=== PATIENT | female | born 1980 | race Caucasian/White ===

== ENCOUNTER 2019-05-21 08:36 | Emergency (ER) | payer SELFPAY ==
--- OUTSIDE RECORDS SUMMARY | 2019-05-21 08:40 | XMS REPORT | Clinical Summary ---
:1980 Author Organization [facility] Address [address] [place] [address] Care Team Providers Name Role Phone Pcp, No Primary Care Provider Unavailable Allergies No Known Allergies Medications Medication Sig Dispensed Refills Start Date End Date Status loratadine Take 10 mg by 0 Active (CLARITIN) 10 mg mouth daily. tablet albuterol HFA Inhale 1 puff by 0 Active (VENTOLIN HFA) 90 mouth via inhaler mcg/actuation every 6 (six) inhaler hours as needed for Wheezing. predniSONE Take 3 tablets 15 tablet 0 01/07/2019 Active (DELTASONE) 20 MG once a day for 5 tablet days for asthma. ipratropium-albute Inhale 3 ml every 30 vial 5 01/07/2019 Active rol (DUO-NEB) 0.5 4 hours if needed mg-3 mg(2.5 mg for relief of base)/3 mL wheezing. nebulizer solution albuterol HFA Inhale 1 puff by 0 Discontinued (VENTOLIN HFA) 90 mouth via inhaler 9 mcg/actuation every 6 (six) inhaler hours as needed for Wheezing. ipratropium-albute Take 3 mLs by 0 Discontinued rol (DUO-NEB) 0.5 nebulization 9 mg-3 mg(2.5 mg every 6 (six) base)/3 mL hours as needed nebulizer solution for Wheezing. acetaminophen Take 1,000 mg by 0 Discontinued (TYLENOL) 500 MG mouth every 6 9 tablet (six) hours as needed for Pain. montelukast Take 10 mg by 0 Discontinued (SINGULAIR) 10 mg mouth nightly. 9 tablet ipratropium-albute Take 3 mLs by 30 ampule 0 05/16/2018 Discontinued rol (DUO-NEB) 0.5 nebulization 9 mg-3 mg(2.5 mg every 4 (four) base)/3 mL hours as needed nebulizer solution for Wheezing. predniSONE Take 1 tablet (50 5 tablet 0 05/16/2018 (DELTASONE) 50 MG mg total) by 8 tablet mouth daily for 5 days. hydrOXYzine Take 1 tablet (50 20 tablet 0 06/24/2018 (ATARAX) 50 MG mg total) by 8 tablet mouth every 6 (six) hours as needed for Itching for up to 10 days. predniSONE Take 1 tablet (50 5 tablet 0 06/24/2018 (DELTASONE) 50 MG mg total) by 8 tablet mouth daily for 5 days. acyclovir Take 1 tablet 50 tablet 0 06/24/2018 (ZOVIRAX) 800 MG (800 mg total) by 8 tablet mouth 5 (five) times daily for 10 days. montelukast Take 1 tablet (10 30 tablet 0 01/07/2019 (SINGULAIR) 10 mg mg total) by 9 tablet mouth nightly for 30 days. Active Problems No known active problems Encounters Date Type Specialty Care Team Description 01/07/2019 Emergency Emergency Medicine Ramirez Samuel Severe persistent asthma MD Manolo with acute exacerbation (Primary Dx) 01/07/2019 Travel 06/24/2018 Emergency Emergency Medicine Olvin Chavis Rash and nonspecific skin MD Brandan eruption (Primary Dx) after 05/20/2018 Social History Tobacco Use Types Packs/Day Years Used Date Former Smoker Cigarettes 0.5 20 Smokeless Tobacco: Never Used Alcohol Use Drinks/Week oz/Week Comments Yes SOCIALLY Sex Assigned at Date Recorded Not on file Job Start Date Occupation Industry Not on file Not on file Not on file Travel History Travel Start Travel End No recent travel history available. Last Filed Vital Signs Vital Sign Reading Time Taken Blood Pressure 131/87 01/07/2019 9:33 AM CDT Pulse 76 01/07/2019 10:22 AM CDT Temperature 36.6 C (97.9 F) 01/07/2019 9:33 AM CDT Respiratory Rate 20 01/07/2019 10:22 AM CDT Oxygen Saturation 97% 01/07/2019 10:22 AM CDT Inhaled Oxygen Concentration - - Weight 62.6 kg (138 lb) 01/07/2019 9:33 AM CDT Height 167.6 cm (5' 6") 01/07/2019 9:33 AM CDT Body Mass Index 22.27 01/07/2019 9:33 AM CDT Plan of Treatment Not on file Results Not on fileafter 05/20/2018
--- OUTSIDE RECORDS SUMMARY | 2019-05-21 08:40 | XMS REPORT | Clinical Summary ---
:1980 Author Organization [facility] Address [address] [place] [address] Care Team Providers Name Role Phone Asked, No Pcp Primary Care Provider Unavailable Allergies Active Allergy Reactions Severity Noted Date Comments Nsaids (Non-Steroidal Anti-Inflammatory Medium 12/13/2018 Rectal bleeding Drug) Medications Medication Sig Dispensed Refills Start Date End Date Status loratadine Take 10 mg by 0 Active (CLARITIN) 10 mg mouth daily. tablet albuterol (PROAIR Inhale 2 puffs 18 g 3 05/09/2019 Active HFA,PROVENTIL every 6 (six) 9 HFA,VENTOLIN HFA) hours as needed 90 mcg/actuation for wheezing or inhaler shortness of breath for up to 30 days. albuterol Take 3 mL (1.25 150 mL 12 05/09/2019 Active (ACCUNEB) 1.25 mg total) by 9 mg/3 mL nebulizer nebulization solution every 6 (six) hours as needed for wheezing for up to 30 days. montelukast Take 1 tablet (10 30 tablet 2 03/04/2018 (SINGULAIR) 10 mg mg total) by 8 tablet mouth nightly for 90 days. albuterol Take 3 mL (2.5 mg 75 mL 2 03/30/2018 (ACCUNEB) 2.5 mg total) by 8 /3 mL (0.083 %) nebulization nebulizer solution every 6 (six) hours as needed for wheezing for up to 60 days. ipratropium-albute Inhale 2 puffs 4 g 1 04/27/2018 rol (COMBIVENT every 4 (four) 8 RESPIMAT) 20-100 hours as needed mcg/actuation mist for wheezing for inhaler up to 30 days. ipratropium-albute Take 3 mL by 360 mL 0 04/27/2018 rol (DUO-NEB) nebulization 4 8 0.5-2.5 mg/mL (four) times a nebulizer day as needed for wheezing for up to 30 days. montelukast Take 10 mg by 0 Discontinued (SINGULAIR) 10 mg mouth. 8 tablet albuterol (PROAIR Inhale 1 puff. 0 Discontinued HFA,PROVENTIL 8 HFA,VENTOLIN HFA) 90 mcg/actuation inhaler ipratropium-albute 3 mL. 0 05/16/2018 Discontinued rol (DUO-NEB) 8 0.5-2.5 mg/mL nebulizer predniSONE Take 1 tablet (50 5 tablet 0 06/13/2018 (DELTASONE) 50 mg mg total) by 8 tablet mouth daily for 5 days. ipratropium-albute Take 3 mL by 360 mL 0 06/13/2018 Discontinued rol (DUO-NEB) nebulization 4 8 0.5-2.5 mg/mL (four) times a nebulizer day for 30 days. ipratropium-albute Take 3 mL by 90 mL 0 07/10/2018 rol (DUO-NEB) nebulization 4 8 0.5-2.5 mg/mL (four) times a nebulizer day for 30 doses. predniSONE Day 1-3: 60 mg per day 16 tablet 0 07/10/2018 Discontinued (DELTASONE) 10 mg Day 4-6: Take 40 mg per day 8 tablet Day 7-10: Take 20 mg per day albuterol Take 3 mL (2.5 mg 75 mL 0 07/10/2018 Discontinued (ACCUNEB) 2.5 mg total) by 8 /3 mL (0.083 %) nebulization nebulizer solution every 6 (six) hours as needed for wheezing for up to 30 days. LORAZepam (ATIVAN) Take 1 tablet 9 tablet 0 07/30/2018 0.5 MG tablet (0.5 mg total) by 8 mouth every 8 (eight) hours as needed for anxiety for up to 3 days. promethazine Take 1 tablet 12 tablet 0 07/30/2018 (PHENERGAN) 12.5 (12.5 mg total) 8 MG tablet by mouth every 6 (six) hours as needed for nausea or vomiting for up to 30 days. predniSONE Day 1-3: 60 mg 16 tablet 0 07/30/2018 (DELTASONE) 10 mg per day. Day 4-6: 8 tablet Take 40 mg per day. Day 7-10: Take 20 mg per day montelukast Take 1 tablet (10 30 tablet 3 07/30/2018 (SINGULAIR) 10 mg mg total) by 8 tablet mouth nightly for 30 days. albuterol (PROAIR Inhale 1 puff 18 g 3 07/30/2018 HFA,PROVENTIL every 4 (four) 8 HFA,VENTOLIN HFA) hours as needed 90 mcg/actuation for wheezing for inhaler up to 30 days. albuterol Take 3 mL (2.5 mg 75 mL 3 07/30/2018 (ACCUNEB) 2.5 mg total) by 8 /3 mL (0.083 %) nebulization nebulizer solution every 6 (six) hours as needed for wheezing for up to 30 days. budesonide-formote Inhale 2 puffs 2 1 Inhaler 3 07/30/2018 rol (SYMBICORT) (two) times a day 8 160-4.5 for 30 days. mcg/actuation inhaler albuterol (PROAIR Inhale 2 puffs 18 g 11 07/30/2018 HFA,PROVENTIL every 6 (six) 8 HFA,VENTOLIN HFA) hours as needed 90 mcg/actuation for wheezing for inhaler up to 30 days. ipratropium-albute Take 3 mL by 360 mL 3 07/30/2018 rol (DUO-NEB) nebulization 4 8 0.5-2.5 mg/mL (four) times a nebulizer day for 30 days. predniSONE Take 6 tablets 5 tablet 0 12/13/2018 (DELTASONE) 10 mg (60 mg total) by 9 tablet mouth daily for 5 days. ipratropium-albute Take 3 mL by 360 mL 0 12/13/2018 rol (DUO-NEB) nebulization 4 9 0.5-2.5 mg/mL (four) times a nebulizer day for 30 days. albuterol Take 3 mL (2.5 mg 75 mL 0 01/03/2019 (ACCUNEB) 2.5 mg total) by 9 /3 mL (0.083 %) nebulization nebulizer solution every 6 (six) hours as needed for wheezing for up to 30 days. albuterol (PROAIR Inhale 2 puffs 1 Inhaler 0 01/03/2019 HFA,PROVENTIL every 4 (four) 9 HFA,VENTOLIN HFA) hours as needed 90 mcg/actuation for wheezing for inhaler up to 30 days. predniSONE Take 1 tablet (50 4 tablet 0 01/03/2019 (DELTASONE) 50 mg mg total) by 9 tablet mouth daily for 4 days. albuterol (PROAIR Inhale 2 puffs 0 Discontinued HFA,PROVENTIL every 6 (six) 9 HFA,VENTOLIN HFA) hours as needed 90 mcg/actuation for wheezing. inhaler ipratropium-albute Take 3 mL by 360 mL 0 03/20/2019 rol (DUO-NEB) nebulization 4 9 0.5-2.5 mg/3 mL (four) times a nebulizer day for 30 days. predniSONE Take 1 tablet (50 5 tablet 0 03/20/2019 (DELTASONE) 50 mg mg total) by 9 tablet mouth daily for 5 days. ipratropium-albute Take 3 mL by 150 mL 0 04/25/2019 rol (DUO-NEB) nebulization 4 9 0.5-2.5 mg/3 mL (four) times a nebulizer day for 13 days. albuterol Take 3 mL (1.25 150 mL 12 04/25/2019 Discontinued (ACCUNEB) 1.25 mg total) by 9 mg/3 mL nebulizer nebulization solution every 6 (six) hours as needed for wheezing for up to 30 days. predniSONE Take 1 tablet (20 8 tablet 0 04/25/2019 (DELTASONE) 20 mg mg total) by 9 tablet mouth 2 (two) times a day for 4 days. albuterol Take 3 mL (1.25 150 mL 12 05/09/2019 Discontinued (ACCUNEB) 1.25 mg total) by 9 mg/3 mL nebulizer nebulization solution every 6 (six) hours as needed for wheezing for up to 30 days. predniSONE Take 6 tablets 30 tablet 0 05/09/2019 (DELTASONE) 10 mg (60 mg total) by 9 tablet mouth daily for 5 days. Hospital, Clinic, Ordered Dose Route Frequency Start Date End Date Status or Other Facility Administered Medication ipratropium-albute 3 mL nebu every 6 hours 05/09/2019 Active rol (DUO-NEB) PRN 0.5-2.5 mg/3 mL nebulizer solution 3 mL ipratropium-albute 3 mL nebu every 6 hours 07/30/2018 Discontinued rol (DUO-NEB) PRN 9 0.5-2.5 mg/mL nebulizer solution 3 mL ipratropium-albute 3 mL nebu every 6 hours 12/13/2018 Discontinued rol (DUO-NEB) PRN 9 0.5-2.5 mg/mL nebulizer solution 3 mL Active Problems Problem Noted Date Severe persistent asthma with acute exacerbation 07/28/2018 Acute respiratory failure with hypoxia 03/03/2018 Severe persistent asthma without complication 03/02/2018 Encounters Date Type Specialty Care Team Description 05/09/2019 Emergency Emergency Balaji Auguste, Moderate persistent Medicine asthma with exacerbation (Primary Dx) 04/25/2019 Emergency Emergency Jeff Andrew Mild intermittent Medicine asthma with exacerbation (Primary Dx) 04/25/2019 Travel 03/20/2019 Emergency Emergency Prasanna Palacios Mild intermittent Medicine MD Tim asthma with acute exacerbation (Primary Dx) 01/03/2019 Emergency Emergency Clive Rubio Moderate asthma with exacerbation, unspecified whether persistent (Primary Dx); Medicine MD Cresencio Medication refill 12/13/2018 Emergency Emergency Sumeet Vargas MD Moderate persistent Medicine asthma with acute exacerbation (Primary Dx) 07[facility] with acute exacerbation, unspecified whether persistent (Primary Dx); 07/30/2018 Encounter Medicine Annie Dunn MD Respiratory distress Efrain, Lilly Guzmán MD 07/10/2018 Emergency Emergency Sumeet Vargas MD Moderate persistent Medicine asthma with acute exacerbation (Primary Dx) 06/13/2018 Emergency Emergency Prasanna Palacios Mild intermittent Medicine MD Tim asthma with exacerbation (Primary Dx) after 05/20/2018 Immunizations Name Dates Previously Given Next Due FLUCELVAX QUAD PF (0.5mL syringe) 07/29/2018 Social History Tobacco Use Types Packs/Day Years Used Date Never Smoker Smokeless Tobacco: Never Used Alcohol Use Drinks/Week oz/Week Comments Yes Sex Assigned at Date Recorded Not on file Job Start Date Occupation Industry Not on file Not on file Not on file Travel History Travel Start Travel End No recent travel history available. Last Filed Vital Signs Vital Sign Reading Time Taken Blood Pressure 133/70 05/09/2019 10:15 AM CDT Pulse 68 05/09/2019 10:15 AM CDT Temperature 36.2 C (97.2 F) 05/09/2019 7:15 AM CDT Respiratory Rate 16 05/09/2019 10:15 AM CDT Oxygen Saturation 97% 05/09/2019 10:15 AM CDT Inhaled Oxygen Concentration - - Weight 68 kg (150 lb) 05/09/2019 7:13 AM CDT Height 167.6 cm (5' 6") 05/09/2019 7:13 AM CDT Body Mass Index 24.21 05/09/2019 7:13 AM CDT Plan of Treatment Health Maintenance Due Date Last Done Comments INFLUENZA VACCINE 05/30/2019 07/29/2018 Procedures Procedure Name Priority Date/Time Associated Comments Diagnosis ED REFERRAL TO [facility] Routine 05/09/2019 10:20 PROTESTANT PHYSICIAN AM CDT ORGANIZATION XR CHEST 1 VW STAT 05/09/2019 7:34 Results for this AM CDT procedure are in the results section. XR CHEST 2 VW STAT 03/20/2019 7:34 Results for this AM CDT procedure are in the results section. IA CRITICAL CARE, E/M Routine 01/03/2019 10:18 Results for this 30-74 MINUTES AM COMPENSATION DIRECTOR procedure are in the results section. RESPIRATORY PATHOGEN Routine 12/13/2018 10:11 Results for this PANEL AM COMPENSATION DIRECTOR procedure are in the results section. INFLUENZA ANTIGEN TEST, Routine 12/13/2018 10:11 Results for this REFLEX NEGATIVE TO RPP AM COMPENSATION DIRECTOR procedure are in the results section. XR CHEST 2 VW STAT 12/13/2018 9:37 Results for this AM COMPENSATION DIRECTOR procedure are in the results section. ESTIMATED GFR Routine 07/29/2018 4:40 Results for this AM CDT procedure are in the results section. PHOSPHORUS LEVEL Routine 07/29/2018 4:40 Results for this AM CDT procedure are in the results section. MAGNESIUM LEVEL Routine 07/29/2018 4:40 Results for this AM CDT procedure are in the results section. HC COMPLETE BLD COUNT Routine 07/29/2018 4:40 Results for this W/AUTO DIFF AM CDT procedure are in the results section. BASIC METABOLIC PANEL Routine 07/29/2018 4:40 Results for this AM CDT procedure are in the results section. ARTERIAL BLOOD GAS STAT 07/28/2018 12:13 Results for this AM CDT procedure are in the results section. ESTIMATED GFR STAT 07/28/2018 12:10 Results for this AM CDT procedure are in the results section. BASIC METABOLIC PANEL STAT 07/28/2018 12:10 Results for this AM CDT procedure are in the results section. HC COMPLETE BLD COUNT STAT 07/28/2018 12:10 Results for this W/AUTO DIFF AM CDT procedure are in the results section. XR CHEST 1 VW PORTABLE STAT 07/28/2018 12:04 Results for this AM CDT procedure are in the results section. IA CRITICAL CARE, E/M Routine 07/27/2018 11:52 Results for this 30-74 MINUTES PM CDT procedure are in the results section. ECG 12-LEAD STAT 06/13/2018 11:00 Results for this AM CDT procedure are in the results section. ECG ED PRELIMINARY Routine 06/13/2018 10:20 Results for this INTERPRETATION AM CDT procedure are in the results section. ZZESTIMATED GFR STAT 06/13/2018 10:20 Results for this AM CDT procedure are in the results section. B NATRIURETIC PEPTIDE STAT 06/13/2018 10:20 Results for this AM CDT procedure are in the results section. TROPONIN STAT 06/13/2018 10:20 Results for this AM CDT procedure are in the results section. COMPREHENSIVE METABOLIC STAT 06/13/2018 10:20 Results for this PANEL AM CDT procedure are in the results section. HC COMPLETE BLD COUNT STAT 06/13/2018 10:20 Results for this W/AUTO DIFF AM CDT procedure are in the results section. XR CHEST 1 VW PORTABLE STAT 06/13/2018 10:10 Results for this AM CDT procedure are in the results section. after 05/20/2018 Results XR Chest 1 Vw (05/09/2019 7:34 AM CDT) Specimen Narrative Performed At EXAMINATION:XR CHEST 1 VW RADIANT CLINICAL HISTORY:SOB COMPARISON: 03/20/2019 FINDINGS: LUNGS: Clear bilaterally.. HEART:Cardiomediastinal silhouette is normal in size and contour.. PLEURA: No evidence for pleural effusion or pneumothorax.. OTHER: Regional osseous structures are normal in appearance. IMPRESSION:No evidence for acute cardiopulmonary disease.. [facility]-[id number] Procedure Note Interface, Radiology Results Incoming - 05/09/2019 7:40 AM CDT EXAMINATION: XR CHEST 1 VW CLINICAL HISTORY: SOB COMPARISON: 03/20/2019 FINDINGS: LUNGS: Clear bilaterally.. HEART: Cardiomediastinal silhouette is normal in size and contour.. PLEURA: No evidence for pleural effusion or pneumothorax.. OTHER: Regional osseous structures are normal in appearance. IMPRESSION: No evidence for acute cardiopulmonary disease.. [id number] Performing Organization Address City/State/Zipcode Phone Number [facility] [address] [place] [address] XR Chest 2 Vw (03/20/2019 7:34 AM CDT)Only the most recent of2 resultswithin the time period is included. Specimen Narrative Performed At EXAMINATION:XR CHEST 2 [facility]W [facility] CLINICAL HISTORY:Ar o wheezing COMPARISON:12/13/2018 IMPRESSION: Lungs are clear without infiltrate, pleural effusion or pneumothorax. Cardiomediastinal silhouette is unremarkable. Osseous structures are unremarkable. Right upper quadrant cholecystic clips [facility]-[id number] Procedure Note Interface, Radiology Results Incoming - 03/20/2019 7:53 AM CDT EXAMINATION: XR CHEST 2 VW CLINICAL HISTORY: SOB h o wheezing COMPARISON: 12/13/2018 IMPRESSION: Lungs are clear without infiltrate, pleural effusion or pneumothorax. Cardiomediastinal silhouette is unremarkable. Osseous structures are unremarkable. Right upper quadrant cholecystic clips [facility]-[id number] Performing Organization Address City/State/Zipcode Phone Number [facility] [address] [place] [address] CRITICAL CARE (01/03/2019 10:18 AM COMPENSATION DIRECTOR) Narrative Performed At Clive Rubio MD 01/03/2019 10:22 AM Critical Care Performed by: Clive Rubio MD Authorized by: Clive Rubio MD Critical care provider statement: Critical care time (minutes):35 Critical care start time:01/03/2019 9:00 AM Critical care end time:01/03/2019 9:35 AM Critical care time was exclusive of:Separately billable procedures and treating other patients and teaching time Critical care was necessary to treat or prevent imminent or life-threatening deterioration of the following conditions:Respiratory failure Critical care was time spent personally by me on the following activities:Development of treatment plan with patient or surrogate, ordering and performing treatments and interventions, pulse oximetry, re-evaluation of patient's condition, evaluation of patient's response to treatment, examination of patient and review of old charts Respiratory pathogen panel (12/13/2018 10:11 AM COMPENSATION DIRECTOR) Pathologist [facility] Respiratory Negative for all pathogens tested: [facility] pathogen panel Negative for Adenovirus PROTESTANT Negative for Coronavirus HKU1 [facility] Negative for Coronavirus NL63 Negative for Coronavirus 229E Negative for Coronavirus OC43 Negative for Human Metapneumovirus Negative for Rhinovirus/Enterovirus Negative for Influenza A Negative for Influenza A/H1 Negative for Influenza A/H3 Negative for Influenza A/H1-2009 Negative for Influenza B Negative for Parainfluenza Virus 1 Negative for Parainfluenza Virus 2 Negative for Parainfluenza Virus 3 Negative for Parainfluenza Virus 4 Negative for Respiratory Syncytial Virus Negative for Bordetella pertussis Negative for Chlamydophila pneumoniae Negative for Mycoplasma pneumoniae This real-time PCR assay detects the presence of nucleic acids (RNA or DNA) for the respiratory pathogens listed. A result of "Not-detected" does not exclude the possibility of the presence of one or more pathogens at concentrations less than the detectable limits of the assay. Comment: Specimen Information Specimen Source: Nares Specimen Site: Left Specimen Nares - Left Performing Organization Address City/State/Zipcode Phone Number [facility] DEPARTMENT OF PATHOLOGY AND [address] [place] [address] [facility] [address] [place] [address] Influenza antigen test, reflex negative to RPP (12/13/2018 10:11 AM COMPENSATION DIRECTOR) Pathologist [facility] Influenza antigen Negative for Influenza A/B antigen. [facility] Comment: [facility] Specimen [facility] Specimen Source: Nares Specimen Site: Left Specimen Nares - Left Performing Organization Address City/State/Zipcode Phone Number [facility] [place] [place] [address], [address] [place] [address] PATHOLOGY AND GENOMIC S MEDICINE [facility] [address] [place] [address] [facility] Estimated GFR (07/29/2018 4:40 AM CDT)Only the most recent of2 resultswithin the time period is included. Pathologist [facility] Estimated GFR >=90 mL/min/1.73 T DEPARTMENT Comment: m2 OF PATHOLOGY AND CatergoryUnitsInterpretation GENOMIC MEDICINE G1 >=90 Normal or high G2 60-89Mildly decreased [id number] to moderately decreased G5d72-06Cwebmfyvsv to severely decreased G4 15-29Severely decreased G5 <15Kidney failure The eGFR was calculated using the Chronic Kidney Disease Epidemiology Collaboration (CKD-EPI) equation. Interpretation is based on recommendations of the National Kidney Foundation-Kidney Disease Outcomes Quality Initiative (NKF-KDOQI) published in 2014. Specimen Plasma specimen Performing Organization Address City/State/Zipcode Phone Number [facility] [place] [place] [address], [address] [place] [address] PATHOLOGY AND GENOMIC MEDICINE CBC with platelet and differential (07/29/2018 4:40 AM CDT)Only the most recent of3 resultswithin the time period is included. WBC 13.24 (H) 4.50 - 11.00 TW DEPARTMENT OF k/uL PATHOLOGY AND GENOMIC MEDICINE RBC 3.56 (L) 4.20 - 5.50 TW DEPARTMENT OF m/uL PATHOLOGY AND GENOMIC MEDICINE HGB 12.9 12.0 - 16.0 T DEPARTMENT OF g/dL PATHOLOGY AND GENOMIC MEDICINE HCT 36.1 (L) 37.0 - 47.0 % TW DEPARTMENT OF PATHOLOGY AND GENOMIC MEDICINE MCV 101.4 (H) 82.0 - 100.0 T DEPARTMENT OF fL PATHOLOGY AND GENOMIC MEDICINE MCH 36.2 (H) 27.0 - 34.0 T DEPARTMENT OF PATHOLOGY AND GENOMIC MEDICINE MCHC 35.7 31.0 - 37.0 T DEPARTMENT OF g/dL PATHOLOGY AND GENOMIC MEDICINE RDW - SD 45.1 37.0 - 55.0 T DEPARTMENT OF UT PATHOLOGY AND GENOMIC MEDICINE MPV 9.9 8.8 - 13.2 [facility] Platelet count 211 150 - 400 T DEPARTMENT OF k/uL PATHOLOGY AND GENOMIC MEDICINE Nucleated RBC 0.00 /100 WBC T DEPARTMENT OF PATHOLOGY AND GENOMIC MEDICINE Neutrophils 92.9 (H) 39.0 - 69.0 % T DEPARTMENT OF PATHOLOGY AND GENOMIC MEDICINE Lymphocytes 4.5 (L) 25.0 - 45.0 % [facility] DEPARTMENT OF PATHOLOGY AND GENOMIC MEDICINE Monocytes 1.8 0.0 - 10.0 % T DEPARTMENT OF PATHOLOGY AND GENOMIC MEDICINE Eosinophils 0.0 0.0 - 5.0 % T DEPARTMENT OF PATHOLOGY AND GENOMIC MEDICINE Basophils 0.1 0.0 - 1.0 % T DEPARTMENT OF PATHOLOGY AND GENOMIC MEDICINE Immature granulocytes 0.7Comment: 0.0 - 1.0 % [facility] DEPARTMENT OF "Immature PATHOLOGY AND granulocytes" GENOMIC MEDICINE (promyelocytes , myelocytes, metamyelocytes ) Specimen Blood Performing Organization Address City/[facility] Phone Number [place] [address], [facility] [address] [place] [address] PATHOLOGY AND GENOMIC MEDICINE Phosphorus level (07/29/2018 4:40 AM CDT) Phosphorus 2.7 2.4 - 4.5 mg/dL [facility] DEPARTMENT OF PATHOLOGY AND GENOMIC MEDICINE Specimen Plasma specimen Performing Organization Address City/[facility] Phone Number [place] [address], [facility] [address] [place] [address] PATHOLOGY AND GENOMIC MEDICINE Magnesium level (07/29/2018 4:40 AM CDT) Magnesium 2.0 1.6 - 2.6 mg/dL [facility] DEPARTMENT OF PATHOLOGY AND GENOMIC MEDICINE Specimen Plasma specimen Performing Organization Address City/[facility] Phone Number [place] [address], [address] [place] [address] PATHOLOGY AND GENOMIC MEDICINE Basic metabolic panel (07/29/2018 4:40 AM CDT)Only the most recent of2 resultswithin the time period is included. Pathologist [facility] Sodium 137 135 - 148 mEq/L [facility] DEPARTMENT OF PATHOLOGY AND GENOMIC MEDICINE Potassium 4.8 3.5 - 5.0 mEq/L [facility] DEPARTMENT OF PATHOLOGY AND GENOMIC MEDICINE Chloride 104 98 - 112 mEq/L [facility] DEPARTMENT OF PATHOLOGY AND GENOMIC MEDICINE CO2 17 (L) 24 - 31 mEq/L [facility] DEPARTMENT OF PATHOLOGY AND GENOMIC MEDICINE Anion gap 16 (H) 7 - 15 mEq/L [facility] DEPARTMENT OF PATHOLOGY AND GENOMIC MEDICINE BUN 12 6 - 20 mg/dL [facility] DEPARTMENT OF PATHOLOGY AND GENOMIC MEDICINE Creatinine 0.52 0.50 - 0.90 mg/dL [facility] DEPARTMENT OF PATHOLOGY AND GENOMIC MEDICINE Glucose 148 (H) 65 - 99 mg/dL [facility] DEPARTMENT OF PATHOLOGY AND GENOMIC MEDICINE Calcium 8.4 8.3 - 10.2 mg/dL [facility] DEPARTMENT OF PATHOLOGY AND GENOMIC MEDICINE Specimen Plasma specimen Performing Organization Address [facility] Phone Number [place] [address], [facility] [address] [place] [address] PATHOLOGY AND GENOMIC MEDICINE Arterial blood gas (07/28/2018 12:13 AM CDT) Pathologist [facility] pH, arterial 7.36 7.35 - 7.45 [facility] DEPARTMENT OF PATHOLOGY AND GENOMIC MEDICINE pCO2, arterial 42 35 - 45 mmHg [facility] DEPARTMENT OF PATHOLOGY AND GENOMIC MEDICINE pO2, arterial 110 (H) 80 - 90 mmHg [facility] DEPARTMENT OF PATHOLOGY AND GENOMIC MEDICINE Bicarbonate, 22.8 21.0 - 28.0 [facility] DEPARTMENT OF arterial mmol/L PATHOLOGY AND GENOMIC MEDICINE Base excess, -2 -2 - 2 mEq/L [facility] DEPARTMENT OF arterial PATHOLOGY AND GENOMIC MEDICINE O2 saturation, 98 95 - 100 % [facility] DEPARTMENT OF arterial PATHOLOGY AND GENOMIC MEDICINE FiO2, inspired O2% 50.0 [facility] DEPARTMENT OF PATHOLOGY AND GENOMIC MEDICINE Total CO2 20 mEq/L [facility] DEPARTMENT OF PATHOLOGY AND GENOMIC MEDICINE O2 content 19.5 15.0 - 23.0 VOL [facility] DEPARTMENT OF % PATHOLOGY AND GENOMIC MEDICINE Specimen Blood Performing Organization Address City/[facility]/Zipcode Phone Number [facility] [place] [address], [address] [place] [address] PATHOLOGY AND GENOMIC MEDICINE XR Chest 1 Vw Portable (07/28/2018 12:04 AM CDT)Only the most recent of2 resultswithin the time period is included. Specimen Narrative Performed At EXAMINATION: XR CHEST 1 VW PORTABLE RADIANT CLINICAL HISTORY: respiratory distress COMPARISON:06/13/2018. IMPRESSION: The lungs are clear. No pleural effusion or pneumothorax. The cardiomediastinal silhouette is normal. No acute osseous abnormalities. [facility]-[id number] Procedure Note Hm Interface, Radiology Results Incoming - 07/28/2018 12:11 AM CDT EXAMINATION: XR CHEST 1 VW PORTABLE CLINICAL HISTORY: respiratory distress COMPARISON: 06/13/2018. IMPRESSION: The lungs are clear. No pleural effusion or pneumothorax. The cardiomediastinal silhouette is normal. No acute osseous abnormalities. [id number] Performing Organization Address City/State/Zipcode Phone Number [facility] [address] [place] [address] CRITICAL CARE (07/27/2018 11:52 PM CDT) Narrative Performed At Annie Navas MD 07/28/20185:10 AM Critical Care Performed by: ANNIE NAVAS Authorized by: ANNIE NAVAS Critical care provider statement: Critical care time (minutes):40 Critical care time was exclusive of:Separately billable procedures and treating other patients and teaching time Critical care was necessary to treat or prevent imminent or life-threatening deterioration of the following conditions: acute respiratory distress. Critical care was time spent personally by me on the following activities:Ordering and performing treatments and interventions, ordering and review of laboratory studies, ordering and review of radiographic studies, pulse oximetry, re-evaluation of patient's condition, review of old charts, examination of patient, evaluation of patient's response to treatment, development of treatment plan with patient or surrogate, discussions with consultants and discussions with primary provider ECG 12 lead (06/13/2018 11:00 AM CDT) Ventricular rate 80 [facility] Atrial rate 80 [facility] IA interval 128 [facility] QRSD interval 88 [facility] QT interval 420 [facility] QTC interval 484 [facility] P axis 1 77 [facility] QRS axis 1 75 [facility] T wave axis 66 [facility] EKG impression Normal sinus [facility] rhythm-Prolonged QT-Abnormal ECG- Specimen Performing Organization Address City/[facility]/Zipcode Phone Number [facility] [address] [place] [address] ECG ED Preliminary Interpretation - NOT AN ORDER (06/13/2018 10:20 AM CDT) Narrative Performed At Prasanna Peterson MD 06/13/2018 11:10 AM ECG ED Preliminary Interpretation - Not an Order Performed by: PRASANNA PALACIOS Authorized by: PRASANNA PALACIOS ECG reviewed by ED Physician in the absence of a change over: yes Previous ECG: Previous ECG:Unavailable Interpretation: Interpretation: non-specific Rate: ECG rate:80 ECG rate assessment: normal Rhythm: Rhythm: sinus rhythm Ectopy: Ectopy: none QRS: QRS axis:Normal QRS intervals:Normal Conduction: Conduction: normal ST segments: ST segments:Normal T waves: T waves: normal Estimated GFR (06/13/2018 10:20 AM CDT) GFR Non Af Amer >90 mL/min/1.73 [facility] DEPARTMENT OF m2 PATHOLOGY AND GENOMIC MEDICINE GFR Af Amer >90 mL/min/1.73 [facility] DEPARTMENT OF Comment: m2 PATHOLOGY AND Chronic kidney disease: <60 mL/min/1.73m2 GENOMIC MEDICINE Kidney failure: <15 mL/min/1.73m2 The estimated GFR is calculated from the IDMS-traceable Modification of Diet in Renal Disease Equation. The accuracy of the calculation is poor when the creatinine is normal. Calculated values >90 mL/min/1.73m2 are not reported. This equation has not been validated in children (<18 years), women, the elderly (>70 years), or ethnic groups other than Caucasians and Americans. Specimen Plasma specimen Narrative Performed At [facility] SHARED WITH HEMATOLOGY SAMPLE. [facility] DEPARTMENT OF PATHOLOGY AND GENOMIC TURNAROUND TIME WILL BE AFFECTED. MEDICINE Performing Organization Address [facility] Phone Number [facility] [place] [place] [address], [address] [place] [address] PATHOLOGY AND GENOMIC MEDICINE Troponin (06/13/2018 10:20 AM CDT) Pathologist [facility] Troponin <0.006 0.000 - 0.300 [facility] DEPARTMENT OF Comment: ng/mL PATHOLOGY AND 0.30 - 1.49 ng/mlMay indicate increased risk of acute GENOMIC MEDICINE coronary syndrome. >=1.5 ng/mlConsistent with acute myocardial infarction. The diagnostic value of a single normal or non-diagnostic result is questionable.Serial samples at 2-6 hour intervals are required to rule out acute myocardial injury. Specimen Plasma specimen Narrative Performed At [facility] SHARED WITH HEMATOLOGY SAMPLE. [facility] DEPARTMENT OF PATHOLOGY AND GENOMIC TURNAROUND TIME WILL BE AFFECTED. MEDICINE Performing Organization Address City/[facility]/Zipcode Phone Number [facility] DEPARTMENT OF [facility], [address] [place] [address] PATHOLOGY AND [employer] MEDICINE B natriuretic peptide (06/13/2018 10:20 AM CDT) [facility] BNP 6 0 - 100 pg/mL [facility] DEPARTMENT OF PATHOLOGY AND [employer] MEDICINE Specimen Blood Narrative Performed At [facility] SHARED WITH HEMATOLOGY SAMPLE. [facility] DEPARTMENT OF PATHOLOGY AND GENOMIC TURNAROUND TIME WILL BE AFFECTED. MEDICINE Performing Organization Address City/[facility] Phone Number [facility] [place] [place] [address], [address] [place] [address] PATHOLOGY AND [employer] MEDICINE Comprehensive metabolic panel (06/13/2018 10:20 AM CDT) [facility] Sodium 137 135 - 148 [facility] DEPARTMENT OF mEq/L PATHOLOGY AND [employer] MEDICINE Potassium 4.2 3.5 - 5.0 [facility] DEPARTMENT OF mEq/L PATHOLOGY AND [employer] MEDICINE Chloride 101 98 - 112 mEq/L [facility] DEPARTMENT OF PATHOLOGY AND [employer] MEDICINE CO2 20 (L) 24 - 31 mEq/L [facility] DEPARTMENT OF PATHOLOGY AND GENOMIC MEDICINE Anion gap 16 (H) 7 - 15 mEq/L [facility] DEPARTMENT OF PATHOLOGY AND GENOMIC MEDICINE BUN 13 6 - 20 mg/dL [facility] DEPARTMENT OF PATHOLOGY AND GENOMIC MEDICINE Creatinine 0.6 0.5 - 0.9 [facility] DEPARTMENT OF mg/dL PATHOLOGY AND [employer] MEDICINE Glucose 77 65 - 99 mg/dL [facility] DEPARTMENT OF PATHOLOGY AND GENOMIC MEDICINE Calcium 9.1 8.3 - 10.2 [facility] DEPARTMENT OF mg/dL PATHOLOGY AND [employer] MEDICINE Protein 6.8 6.3 - 8.3 g/dL [facility] DEPARTMENT OF Comment: PATHOLOGY AND 4.6-7.0 g/dL GENOMIC MEDICINE 1 week 4.4-7.6 g/dL 7 months-1year5.1-7.3 g/dL 1-2 years5.6-7.5 g/dL >3 years6.0-8.0 g/dL 18-150 6.3-8.3 g/dL Albumin 4.0 3.5 - 5.0 g/dL [facility] DEPARTMENT OF PATHOLOGY AND GENOMIC MEDICINE A/G ratio 1.4 0.7 - 3.8 [facility] DEPARTMENT OF PATHOLOGY AND GENOMIC MEDICINE Alkaline phosphatase 58 35 - 104 U/L [facility] DEPARTMENT OF PATHOLOGY AND GENOMIC MEDICINE AST 27 10 - 35 U/L [facility] DEPARTMENT OF PATHOLOGY AND GENOMIC MEDICINE ALT 21 5 - 50 U/L [facility] DEPARTMENT OF PATHOLOGY AND GENOMIC MEDICINE Total bilirubin 0.4 0.0 - 1.2 [facility] DEPARTMENT OF mg/dL PATHOLOGY AND GENOMIC MEDICINE Specimen Plasma specimen Narrative Performed At [facility] SHARED WITH HEMATOLOGY SAMPLE. [facility] DEPARTMENT OF PATHOLOGY AND GENOMIC TURNAROUND TIME WILL BE AFFECTED. MEDICINE Performing Organization Address City/State/Zipcode Phone Number [facility] [place] [place] [address], [address] [place] [address] PATHOLOGY AND GENOMIC MEDICINE after 05/20/2018 Advance Directives Patient has advance care planning documents, and code status on file. For more information, please contact:[place] [address] Code Status Date Activated Date Inactivated Comments Full Code 07/28/2018 7:20 AM 07/30/2018 2:44 PM Code Status decision reached by: Patient
--- OUTSIDE RECORDS SUMMARY | 2019-05-21 08:40 | XMS REPORT ---
:1980 [facility] Address [address] [place] [address] Care Team Providers Name Role Phone JACKIE CROSS Unavailable Unavailable MARS FONG Unavailable Unavailable Problems This patient has no known problems. Allergies, Adverse Reactions, Alerts This patient has no known allergies or adverse reactions. Medications This patient has no known medications. Encounters Start End Encounter Admission Attending Care Care Encounter Date/Time Date/Time Type Type Clinicians Facility Department ID 2019-02-12 2019-02-12 Outpatient E [facility] [id number] 18:15:00 18:15:00 Results Test Description Test Time Test Comments Text Results Atomic Results Result Comments CT, CHEST, WITH 2018-05-16 Reason for FINAL REPORT PATIENT IV CONTRAST 12:58:00 exam:->WHEEZINGReason for ID: [id number] Chest CT exam:->SHORTNESS OF BREATHIs with contrast the patient INDICATION: ?->NoWhat is the WHEEZINGSHORTNESS OF patient's sedation BREATHAbnormal CXR requirement?->No Sedation COMPARISON: Radiographs from the same date TECHNIQUE: Multiple contiguous transaxial images of the chest were obtained following the administration of intravenous contrast. This exam was performed according to our departmental dose optimization program which includes automated exposure control, adjustment of the mA and/or kV according to patient size and/or use of iterative reconstructive technique. FINDINGS: There is no pneumothorax, pulmonary edema or pleural effusion. There is multifocal mucus plugging of the bilateral bronchioles involving the right and left upper and lower lobes. There is a nonspecific 3 mm nodule along the right fissure. There is no focal consolidation. The major airways are clear. The visualized portion of the thyroid gland appears unremarkable. There is no hilar, mediastinal or axillary lymphadenopathy. Residual thymic tissue seen in the anterior mediastinum. No CT abnormality is seen corresponding to the right paratracheal stripe thickening on the chest radiograph from the same date. There is no pericardial effusion. The heart size appears within normal limits. Limited visualization of the upper abdominal structures are intact. The osseous structures are intact. IMPRESSION:1. No CT abnormality seen corresponding to the right paratracheal stripe thickening on the chest radiograph from the same date.2. Multifocal mucus plugging of the bilateral bronchioles as above. Signed: Olvin Soriano MDReport Verified Date/Time: 05/16/2018 12:58:53 Reading Location: [address] Ortho Consult Reading Room C METABOLIC PANEL 2018-05-16 11:45:00 Test Item Value Reference Range Comments SODIUM (BEAKER) (test 138 meq/L 135-148 qpuq=151) POTASSIUM (BEAKER) (test 4.2 meq/L 3.6-5.5 iixg=965) CHLORIDE (BEAKER) (test 107 meq/L 98-106 jjbc=759) CO2 (BEAKER) (test 20 meq/L 24-32 lsqz=588) BLOOD UREA NITROGEN 11 mg/dL 10-26 (BEAKER) (test ikdm=961) CREATININE (BEAKER) (test 0.61 mg/dL 0.50-1.20 rudf=123) GLUCOSE RANDOM (BEAKER) 104 mg/dL 70-110 (test dsyj=746) CALCIUM (BEAKER) (test 9.3 mg/dL 8.5-10.5 wusr=668) EGFR (BEAKER) (test 110 mL/min/1.73 sq m ESTIMATED GFR IS NOT mxqd=4256) ACCURATE CREATININE CLEARANCE IN PREDICTING GLOMERULAR FILTRATION RATE. ESTIMATED GFR IS NOT APPLICABLE FOR DIALYSIS PATIENTS. CBC W/PLT COUNT & AUTO [id number] 11:38:00 Test Item Value Reference Range Comments WHITE BLOOD CELL COUNT (BEAKER) (test jmbn=167) 4.4 K/ L 4.0-10.0 RED BLOOD CELL COUNT (BEAKER) (test xtvo=405) 4.44 M/ L 4.00-5.00 HEMOGLOBIN (BEAKER) (test cqng=782) 15.4 GM/DL 12.0-15.0 HEMATOCRIT (BEAKER) (test eenp=212) 45.3 % 36.0-45.0 MEAN CORPUSCULAR VOLUME (BEAKER) (test vkhc=548) 102.0 fL 82.0-99.0 MEAN CORPUSCULAR HEMOGLOBIN (BEAKER) (test 34.7 pg 27.0-33.0 wyzo=775) MEAN CORPUSCULAR HEMOGLOBIN CONC (BEAKER) (test 34.0 GM/DL 32.0-36.0 ydrg=598) RED CELL DISTRIBUTION WIDTH (BEAKER) (test 11.9 % 12.0-15.0 sfbj=307) PLATELET COUNT (BEAKER) (test gfdj=371) 238 K/CU MM 150-430 MEAN PLATELET VOLUME (BEAKER) (test xasg=216) 9.7 fL 6.5-11.5 NUCLEATED RED BLOOD CELLS (BEAKER) (test 0 /100 WBC 0-0 pvrs=813) NEUTROPHILS RELATIVE PERCENT (BEAKER) (test 50 % ynit=754) LYMPHOCYTES RELATIVE PERCENT (BEAKER) (test 34 % vpxn=810) MONOCYTES RELATIVE PERCENT (BEAKER) (test 5 % nbbb=198) EOSINOPHILS RELATIVE PERCENT (BEAKER) (test 10 % mexd=553) BASOPHILS RELATIVE PERCENT (BEAKER) (test 1 % pbdm=963) NEUTROPHILS ABSOLUTE COUNT (BEAKER) (test 2.18 K/ L 1.80-8.00 uwol=883) LYMPHOCYTES ABSOLUTE COUNT (BEAKER) (test 1.48 K/ L 1.48-4.50 yyqz=567) MONOCYTES ABSOLUTE COUNT (BEAKER) (test 0.23 K/ L 0.00-1.30 gadb=234) EOSINOPHILS ABSOLUTE COUNT (BEAKER) (test 0.43 K/ L 0.00-0.50 msbl=626) BASOPHILS ABSOLUTE COUNT (BEAKER) (test 0.06 K/ L 0.00-0.20 jyjp=935) IMMATURE GRANULOCYTES-RELATIVE PERCENT (BEAKER) 0 % 0-0 (test faog=9402) RAD, CHEST, 1 VIEW, NON [id number] 11:06:00Reason for exam:->cough SOBShould this be performed at the bedside?->YesFINAL REPORT Chest, one view. HISTORY: Cough, shortness of breath COMPARISON:2017 DISCUSSION: The right paratracheal stripe is widened measuring 3.3 cm. Lungs are grossly clear without focal consolidation. No large pleural effusion or pneumothorax. Cardiomediastinal silhouette is otherwise within normal limits. Surgical clips in the right upper quadrant. No acute osseous abnormality. IMPRESSION: Nonspecific widening of the right paratracheal stripe. Recommend further evaluation with chest CT with contrast to assess for lymphadenopathy or mediastinal mass. Signed: Seven Villela MDReport Verified Date /Time: 05/16/2018 11:06:45 Reading Location: [address] [place] Reading Room RAPID INFLUENZA A&B [id number] 10:11:00 Test Item Value Reference Range Comments RAPID INFLUENZA A AG (BEAKER) (test cpqx=7400) Negative Negative RAPID INFLUENZA B AG (BEAKER) (test zklg=4122) Negative Negative RAD, CHEST, 2 [id number] 10:10:00Reason for exam:->cough, wheezingShould this be performed at the bedside?->NoIs the patient ?- >UnknownFINAL REPORT Chest, PA and lateral. History : Cough, wheezing. Comparison: None available. Discussion: The cardiomediastinal silhouette and pulmonary vasculature are within normal limits. The lungs are clear without evidence of consolidation or effusion. There are no acute osseous abnormalities. The soft tissues are unremarkable. IMPRESSION: No acute cardiopulmonary abnormality. Signed: Sunil Velazquez MDReport Verified Date/Time: 11/21/2017 10:10:06 Reading Location: [address] Radiology Reading Room PREGNANCY SCREEN, [id number] 09:57:00 Test Item Value Reference Range Comments TEST URINE (BEAKER) (test eelx=587) Negative
[2019-05-21] MEDS ORDERED: DULERA 100/5 (MOMETASONE/FORMOTEROL) INHALER IH ONE (09:15)
[2019-05-21] MEDS ORDERED: DIPHENHYDRAMINE 50 MG/ML VIAL ONE (09:17)
[2019-05-21] MEDS ORDERED: FAMOTIDINE 20 MG/2 ML VIAL IV ONE (09:18)
[2019-05-21] MEDS ORDERED: Magnesium Sulfate 2gm IVPB 2 G/50 ML BAG IV ONE (09:18)
[2019-05-21] MEDS ORDERED: NA CHLORIDE 0.9% 1,000 ML ONE (09:18)
--- NOTE | 2019-05-21 09:31 | RAD REPORT ---
EXAM DESCRIPTION: RAD - Chest Pa And Lat (2 Views) - 05/21/2019 9:14 am CLINICAL HISTORY: SOB Chest pain. COMPARISON: No comparisons FINDINGS: The lungs are clear. The heart is normal in size. No displaced fractures. IMPRESSION: No acute or concerning finding suspected.
[2019-05-21] MEDS ORDERED: IPRATROPIUM BROM 0.5MG/2.5ML ONE (11:37)
--- NOTE | 2019-05-21 11:41 | ER ---
Nurse's Notes [facility] Name: Jaylin Lowe Age: 38 yrs Sex: Female : 1980 Arrival Date: 05/21/2019 Time: 08:37 Bed 15 Private MD: Diagnosis: Severe persistent asthma with (acute) exacerbation Presentation: 05/21 08:48 Presenting complaint: Patient states: hx of asthma, ran out her duo-neb a couple weeks iw ago, has only had her albuterol neb, does not have insurance til June, finished a round of steroids last Monday, was seen at [facility], is still wheezing and SOB, also has non productive cough, no fever. Transition of care: patient was not received from another setting of care. Onset of symptoms was May 08, 2019. Risk Assessment: Do you want to hurt yourself or someone else? Patient reports no desire to harm self or others. Initial Sepsis Screen: Does the patient meet any 2 criteria? No. Patient's initial sepsis screen is negative. Does the patient have a suspected source of infection? No. Patient's initial sepsis screen is negative. Care prior to arrival: Medication(s) given: albuterol. 08:48 Method Of Arrival: Ambulatory iw 08:48 Acuity: OXANA 3 iw Triage Assessment: 08:48 Pain: Denies pain. 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 - Social history:: Smoking status: Patient/guardian denies using tobacco. - Ebola Screening: : Patient negative for fever greater than or equal to 101.5 degrees Fahrenheit, and additional compatible Ebola Virus Disease symptoms Patient denies exposure to infectious person Patient denies travel to an Ebola-affected area in the 21 days before illness onset No symptoms or risks identified at this time. Screenin:48 Abuse screen: Denies threats or abuse. Nutritional screening: No deficits noted. rb1 Tuberculosis screening: No symptoms or risk factors identified. Fall Risk None identified. Assessment: 08:48 General: Appears in no apparent distress. comfortable, Behavior is cooperative, Pt. is rb1 jittery from the Albuterol treatment she did before come here.. Denies fever. Neuro: Level of Consciousness is awake, alert, obeys commands, Oriented to person, place, time, situation. Cardiovascular: Capillary refill < 3 seconds is brisk in bilateral fingers. Respiratory: Reports shortness of breath cough that is non-productive, Airway is patent Respiratory effort is even, unlabored, Respiratory pattern is regular, symmetrical, the patient has mild shortness of breath. GI: No signs and/or symptoms were reported involving the gastrointestinal system. : No signs and/or symptoms were reported regarding the genitourinary system. Derm: Skin is pink, warm \T\ dry. 09:03 Reassessment: Pt. went to X-ray. rb1 09:45 Reassessment: Patient appears in no apparent distress at this time. Patient and/or rb1 family updated on plan of care and expected duration. Pain level reassessed. Patient is alert, oriented x 3, equal unlabored respirations, skin warm/dry/pink. 10:45 Reassessment: Patient appears in no apparent distress at this time. No changes from rb1 previously documented assessment. 11:43 Reassessment: Patient appears in no apparent distress at this time. Patient and/or rb1 family updated on plan of care and expected duration. Pain level reassessed. Patient is alert, oriented x 3, equal unlabored respirations, skin warm/dry/pink. Patient denies pain at this time. 11:54 Reassessment: Discharge pending due to provider needing to talk with the pt. rb1 12:20 Reassessment: Patient appears in no apparent distress at this time. Patient states rb1 feeling better. Patient states symptoms have improved. Vital Signs: 08:53 BP 116 / 81; Pulse 108; Resp 22 S; Temp 97.3(TE); Pulse Ox 96% on R/A; Weight 70.31 kg; iw Height 5 ft. 6 in. (167.64 cm); Pain 0/10; 10:12 BP 121 / 93; Pulse 75; Resp 16; Temp 97.6(TE); Pulse Ox 94% on R/A; mh5 11:04 BP 144 / 96; Pulse 82; Resp 18; Temp 97.8(TE); Pulse Ox 95% on R/A; mh5 12:04 BP 137 / 93; Pulse 67; Resp 20; Temp 98.5(O); Pulse Ox 99% ; Pain 0/10; rb1 08:53 Body Mass Index 25.02 (70.31 kg, 167.64 cm) iw ED Course: 08:37 Patient arrived in ED. as 08:41 Joan Guevara FNP-C is PHCP. snw 08:41 Frantz Blackman MD is Attending Physician. snw 08:48 Patient has correct armband on for positive identification. Bed in low position. Call rb1 light in reach. Side rails up X 1. Pulse ox on. NIBP on. Warm blanket given. 08:50 Kat Finney, RN is Primary Nurse. rb1 08:52 Triage completed. iw 08:53 Arm band placed on. iw 09:00 Missed attempt(s): 22 gauge in right antecubital area. Bleeding controlled, band aid rb1 applied, catheter tip intact. 09:06 Inserted saline lock: 22 gauge in right hand, using aseptic technique. ,using aseptic rb1 technique. IV inserted by LUCAS Coulter. 09:13 X-ray completed. Patient tolerated procedure well. Patient moved to radiology via sw wheelchair. Patient moved back from radiology. 09:15 Chest Pa And Lat (2 Views) XRAY In Process Unspecified. EDMS 10:13 Patient has correct armband on for positive identification. Bed in low position. Call 5 light in reach. Side rails up X 1. Warm blanket given. pvc monitor on. Pulse ox on. NIBP on. 12:20 No provider procedures requiring assistance completed. IV discontinued, intact, rb1 bleeding controlled, No redness/swelling at site. Pressure dressing applied. Administered Medications: 09:45 Drug: NS 0.9% 1000 ml Route: IV; Rate: 1 bolus; Site: right hand; ss 11:03 Follow up: IV Status: Completed infusion rb1 09:47 Drug: Pepcid 20 mg Route: IVP; Site: right hand; ss 10:00 Follow up: Response: No adverse reaction rb1 09:50 Drug: Benadryl 12.5 mg Route: IVP; Site: right antecubital; ss 10:00 Follow up: Response: No adverse reaction rb1 09:53 Drug: Magnesium Sulfate 2 grams Route: IVPB; Infused Over: 2 hrs; Site: right ss antecubital; 10:06 Follow up: Response: No adverse reaction rb1 10:04 Drug: Dulera 100 mcg-5 mcg/actuation 2 inhalations Route: Inhalation; rb1 11:31 Drug: AtroVENT Aerosol 0.5 mg Route: Inhalation; rb1 Outcome: 11:41 Discharge ordered by . sherri 12:20 Discharged to home ambulatory. rb1 12:20 Condition: stable 12:20 Discharge instructions given to patient, Instructed on discharge instructions, follow up and referral plans. medication usage, Demonstrated understanding of instructions, follow-up care, medications, Prescriptions given X 1. 12:20 Patient left the ED. rb1 Signatures: Dispatcher [employer] EDMS Joan Guevara, BREWERY WORKER-C BREWERY WORKER-Roxi Foley Irene, RN RN Marylin Jamil RN RN Jadyn Fontaine Rebecca, RN RN rb1 Kaykay Mckeon [facility] Corrections: (The following items were deleted from the chart) 08:56 08:48 Acuity: OXANA 4 iw iw 12:30 12:29 Patient left the ED. rb1 rb1
--- NOTE | 2019-05-21 11:42 | EDPHYS ---
Physician Documentation [facility] Name: Jaylin Lowe Age: 38 yrs Sex: Female : 1980 Arrival Date: 05/21/2019 Time: 08:37 Bed 15 Private MD: ED Physician Frantz Blackman HPI: 05/21 09:00 This 38 yrs old Female presents to ER via Ambulatory with complaints of snw Asthma Exacerbation. 09:00 The patient presents to the emergency department with wheezing, Current therapy: snw DuoNeb, claritin, that began at rest, the patient was reported to have audible wheezing, chest tightness, non-productive cough, trouble breathing. Onset: The symptoms/episode began/occurred suddenly, 2 week(s) ago, and became persistent. Modifying factors: The symptoms are alleviated by nothing. Associated signs and symptoms: Pertinent negatives: chest pain, choking, fever, headache, nausea, rash, vomiting. Severity of symptoms: At their worst the symptoms were moderate in the emergency department the symptoms are unchanged. The patient has experienced similar episodes in the past. went to ED in Spring, given nebs and 60mg prednisone for dc, pt not noting much improvement. 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 - Social history:: Smoking status: Patient/guardian denies using tobacco. - Ebola Screening: : Patient negative for fever greater than or equal to 101.5 degrees Fahrenheit, and additional compatible Ebola Virus Disease symptoms Patient denies exposure to infectious person Patient denies travel to an Ebola-affected area in the 21 days before illness onset No symptoms or risks identified at this time. ROS: 08:57 Constitutional: Negative for fever, chills, and weight loss, Eyes: Negative for injury, snw pain, redness, and discharge, ENT: Negative for injury, pain, and discharge, Neck: Negative for injury, pain, and swelling, Cardiovascular: Negative for chest pain, palpitations, and edema, Respiratory: Positive for shortness of breath, cough, wheezing, denies pleuritic chest pain, s/s x 2 weeks, just finished prednisone 60mg po daily Abdomen/GI: Negative for abdominal pain, nausea, vomiting, diarrhea, and constipation, Back: Negative for injury and pain, : Negative for injury, bleeding, discharge, and swelling, MS/Extremity: Negative for injury and deformity, Skin: Negative for injury, rash, and discoloration, Neuro: Negative for headache, weakness, numbness, tingling, and seizure. Exam: 08:57 Constitutional: This is a well developed, well nourished patient who is awake, alert, snw and in no acute distress. Head/Face: Normocephalic, atraumatic. Eyes: Pupils equal round and reactive to light, extra-ocular motions intact. Lids and lashes normal. Conjunctiva and sclera are non-icteric and not injected. Cornea within normal limits. Periorbital areas with no swelling, redness, or edema. ENT: Nares patent. No nasal discharge, no septal abnormalities noted. Tympanic membranes are normal and external auditory canals are clear. Oropharynx with no redness, swelling, or masses, exudates, or evidence of obstruction, uvula midline. Mucous membranes moist. Neck: Trachea midline, no thyromegaly or masses palpated, and no cervical lymphadenopathy. Supple, full range of motion without nuchal rigidity, or vertebral point tenderness. No Meningismus. Chest/axilla: Normal chest wall appearance and motion. Nontender with no deformity. No lesions are appreciated. Cardiovascular: Regular rate and rhythm with a normal S1 and S2. No gallops, murmurs, or rubs. Normal PMI, no JVD. No pulse deficits. 08:57 Abdomen/GI: Soft, non-tender, with normal bowel sounds. No distension or tympany. No guarding or rebound. No evidence of tenderness throughout. Back: No spinal tenderness. No costovertebral tenderness. Full range of motion. Skin: Warm, dry with normal turgor. Normal color with no rashes, no lesions, and no evidence of cellulitis. MS/ Extremity: Pulses equal, no cyanosis. Neurovascular intact. Full, normal range of motion. Neuro: Awake and alert, GCS 15, oriented to person, place, time, and situation. Cranial nerves II-XII grossly intact. Motor strength 5/5 in all extremities. Sensory grossly intact. Cerebellar exam normal. Normal gait. Mildly tremulous s/p recent neb Psych: Awake, alert, with orientation to person, place and time. Behavior, mood, and affect are within normal limits. 08:57 Respiratory: the patient does not display signs of respiratory distress, Respirations: shallow respirations, splinting, that is mild, tachypnea, that is mild, Breath sounds: wheezing: expiratory that is moderate, is heard diffusely, tight cough. Vital Signs: 08:53 BP 116 / 81; Pulse 108; Resp 22 S; Temp 97.3(TE); Pulse Ox 96% on R/A; Weight 70.31 kg; iw Height 5 ft. 6 in. (167.64 cm); Pain 0/10; 10:12 BP 121 / 93; Pulse 75; Resp 16; Temp 97.6(TE); Pulse Ox 94% on R/A; mh5 11:04 BP 144 / 96; Pulse 82; Resp 18; Temp 97.8(TE); Pulse Ox 95% on R/A; mh5 12:04 BP 137 / 93; Pulse 67; Resp 20; Temp 98.5(O); Pulse Ox 99% ; Pain 0/10; rb1 08:53 Body Mass Index 25.02 (70.31 kg, 167.64 cm) iw MDM: 08:54 Patient medically screened. snw 10:14 Response to treatment: the patient's symptoms have markedly improved after treatment, snw still awaiting completion of Magnesium and NS, will give atrovent post NS bolus. 11:43 Data reviewed: vital signs, nurses notes. Data interpreted: Pulse oximetry: on room air snw is 95 %. Interpretation: hypoxia. Plan: will initiate a nebulizer treatment. Counseling: I had a detailed discussion with the patient and/or guardian regarding: the historical points, exam findings, and any diagnostic results supporting the discharge/admit diagnosis, the presence of at least one elevated blood pressure reading (>120/80) during this emergency department visit, radiology results, the need for outpatient follow up, to return to the emergency department if symptoms worsen or persist or if there are any questions or concerns that arise at home. Special discussion: I have referred the patient to see his PCP for further evaluation of high blood pressure. Based on the history and exam findings, there is no indication for further emergent testing or inpatient evaluation. I discussed with the patient/guardian the need to see the primary care provider for further evaluation of the symptoms. I discussed with the patient/guardian the need to see the volunteer manager for further evaluation of the symptoms. 05/21 08:53 Order name: Chest Pa And Lat (2 Views) XRAY; Complete Time: 09:42 snw Administered Medications: 09:45 Drug: NS 0.9% 1000 ml Route: IV; Rate: 1 bolus; Site: right hand; ss 11:03 Follow up: IV Status: Completed infusion rb1 09:47 Drug: Pepcid 20 mg Route: IVP; Site: right hand; ss 10:00 Follow up: Response: No adverse reaction rb1 09:50 Drug: Benadryl 12.5 mg Route: IVP; Site: right antecubital; ss 10:00 Follow up: Response: No adverse reaction rb1 09:53 Drug: Magnesium Sulfate 2 grams Route: IVPB; Infused Over: 2 hrs; Site: right ss antecubital; 10:06 Follow up: Response: No adverse reaction rb1 10:04 Drug: Dulera 100 mcg-5 mcg/actuation 2 inhalations Route: Inhalation; rb1 11:31 Drug: AtroVENT Aerosol 0.5 mg Route: Inhalation; rb1 Disposition: 13:18 Co-signature as Attending Physician, Frantz Blackman MD I agree with the assessment and kdr plan of care. Disposition: 05/21/19 11:41 Discharged to Home. Impression: Severe persistent asthma with (acute) exacerbation. - Condition is Stable. - Discharge Instructions: Asthma, Adult, Metered Dose Inhaler with Spacer, Asthma, Acute Bronchospasm. - Prescriptions for Dulera 200- 5 mcg/actuation Inhalation HFA aerosol inhaler - inhale 2 puff by INHALATION route every 12 hours; 1 Cartridge. - Medication Reconciliation Form, Thank You Letter, Antibiotic Education, Prescription Opioid Use form. - Follow up: Private Physician; When: 1 - 2 days; Reason: Recheck today's complaints, Continuance of care, Re-evaluation by your physician. Follow up: Emergency Department; When: As needed; Reason: Trouble breathing. Signatures: Dispatcher [employer] EDMS Frantz Blackman MD MD [facility] Joan Guevara, PATTERN DUPLICATOR-C PATTERN DUPLICATOR-Csnw Adilia Novak, RN RN iw Marylin Jamil RN RN ss Kat Finney, RN RN rb1 Corrections: (The following items were deleted from the chart) 12:29 11:41 05/21/2019 11:41 Discharged to Home. Impression: Severe persistent asthma with rb1 (acute) exacerbation. Condition is Stable. Forms are Medication Reconciliation Form, Thank You Letter, Antibiotic Education, Prescription Opioid Use. Follow up: Private Physician; When: 1 - 2 days; Reason: Recheck today's complaints, Continuance of care, Re-evaluation by your physician. Follow up: Emergency Department; When: As needed; Reason: Trouble breathing. snw
== END 2019-05-21 12:29 | disposition home or self-care (01) ==
LOC: ER 08:36
DX: J45.51 Severe persistent asthma with (acute) exacerbation (principal)
CPT/HCPCS: 71046; 96361; 96374; 96375; 99285; J3475; J7030; J7606